=== PATIENT | male | born 1965 | race Caucasian/White ===

== ENCOUNTER 2021-06-22 04:33 | Emergency (ER) | payer SELFPAY ==
[~2021-06-22] VITALS: Ht 175.3 cm; Wt 66.9 kg
[2021-06-22] MEDS ORDERED: TETANUS, DIPHTHERIA, PERTUSSIS VAC/PF 0.5ML (>10YR OLD) IM ONE (05:00)
[2021-06-22] MEDS ORDERED: IBUPROFEN 600MG TABLET PO ONE (05:00)
[2021-06-22] MEDS ORDERED: TOPUD MT (05:56)
[2021-06-22 06:59] VITALS: BP 200/104
[2021-06-22] MEDS ORDERED: ACETAMINOPHEN 325MG TABLET PO ONE (07:15)
== END 2021-06-22 07:21 | disposition home or self-care (01) ==
LOC: ER 04:33
DX: M54.2 Cervicalgia (principal); M54.50 Low back pain, unspecified; M25.511 Pain in right shoulder; I10 Essential (primary) hypertension; W01.0XXA Fall on same level from slipping, tripping and stumbling without subsequent striking against object, initial encounter; Y93.89 Activity, other specified; Y92.9 Unspecified place or not applicable
CPT/HCPCS: 72040; 72100; 73030; 90471; 90715; 99284